=== PATIENT | male | born 1960 | race African-American/Black ===

== ENCOUNTER 2016-11-30 09:02 | Emergency (ER) | payer MEDICARE ==
--- NOTE | ~2016-11-30 | CT4 ---
[facility] A Service of [facility] & [facility] RADIOLOGY TEXT RESULTS PATIENT: MERCY PARADA LOCATION: [facility] : 60 UNIT #: [id number] AGE: [address]: Jennifer Spaulding APRN SEX: M ORDER DR: [id number] [facility] [address] [place], [place] [address] [id number] E MR#: [id number] Acc #: [id number] NAME: MERCY PARADA : 1960 SEX: M STUDY DATE/TIME: 11/30/2016 10:06 UNIT: [facility] ROOM: STUDY DESCRIPTION: CT Abd and Pelv Wo Cont Attending Physician: Jennifer Spaulding A.P.R.N. Ordering Physician: Ed Doctor [id number] [facility] Primary Care Physician: Primary Care Physician No MEDICAL IMAGING REPORT This report is preliminary unless electronic signature is present EXAM CT abdomen and pelvis without contrast 11/30/2016 1006 hours HISTORY 56-year-old man with complaint of right flank pain for 3 days. History of hyperlipidemia. COMPARISON Ultrasound right upper quadrant 01/27/[address] aorta 01/25/2014. TECHNIQUE Helical noncontrasted images were obtained from the lung bases through the pubic symphysis without oral or intravenous contrast. Sagittal and coronal reconstructions were performed. Total exam DLP 669 mGy-cm. This CT examination was performed with one or more of the following radiation dose reduction techniques: automatic exposure control, adjustment of mA and/or kV according to patient size, and iterative reconstruction. FINDINGS Images through the lung bases are clear. There is no effusion. The distal esophagus is normal. Images through the abdomen demonstrate a normal noncontrasted appearance of the liver, spleen, pancreas, gallbladder and bile ducts. The adrenal glands are normal. The kidneys demonstrate no mass, stone or dilatation. There is no ureterectasis or ureteral calculus. The abdominal aorta is normal in caliber with mild atherosclerotic calcification present. The stomach is contracted and unopacified but appears normal. There is no small bowel distension or small bowel wall thickening. The appendix is well seen and normal. The terminal ileum and cecum are normal. There is no colonic wall thickening. There are scattered diverticula in the descending colon with multiple diverticula in the sigmoid colon. There is STS. [facility] A Service of [facility] & [facility] RADIOLOGY TEXT RESULTS PATIENT: MERCY PARADA LOCATION: [facility] : 60 UNIT #: [id number] AGE: [address]: Jennifer Spaulding APRN SEX: M ORDER DR: no bowel wall thickening or inflammation. The bladder, seminal vesicles and prostate are normal. There is multilevel degenerative disc disease with osteophytes and facet arthropathy in the lower lumbar levels. No fracture or malalignment. IMPRESSION 1. No renal or ureteral calculi. 2. No evidence of gallstones or bile duct dilatation. The pancreas is normal. 3. The terminal ileum, cecum and appendix are normal. 4. Uncomplicated colonic diverticula in the descending colon and sigmoid colon. 5. There is degenerative disc disease and facet degenerative change in the lower lumbar spine. No fracture seen. Dictated by... Jenny Zuñiga M.D. THIS IS AN ELECTRONICALLY VERIFIED REPORT Jenny Zuñiga M.D. at 11/30/2016 2:30 PM JOVANNY/marcy TD: 11/30/2016 12:08 JOB #: [id number] MEDICAL IMAGING REPORT Page 1 of 1 COPY
[2016-11-30 08:31] LABS: BASOPHIL% 0.9 % (0-2.5); EOSINOPHIL# 0.1 X10e3 (0-0.7); HEMATOCRIT 49.1 % (38.0-50.0); LYMPHOCYTE# 1.9 X10e3 (1.0-3.5); LYMPHOCYTE% 51.1 % (17.0-45.0); MEAN CELL VOLUME 85.4 FL (83-96); MEAN CORPUSCULAR HEMOGLOBIN 27.9 PG (28-34); MEAN CORPUSCULAR HGB CONC 32.7 g/dL (30-36); MONOCYTE# 0.4 X10e3 (0-1.0); MONOCYTE% 11.6 % (3.0-12.0); NEUTROPHIL# 1.3 X10e3 (1.5-7.1); NEUTROPHIL% 33.4 % (40-75); PLATELET COUNT 184 X10e3 (140-420); RED BLOOD COUNT 5.75 X10e (3.90-5.60); RED CELL DISTRIBUTION WIDTH 14.8 % (11.0-15.5); WHITE BLOOD COUNT 3.8 X10e3 (4.0-10.5)
[2016-11-30 08:51] LABS: DIFF IND YES
[2016-11-30 08:52] LABS: BILIRUBIN,TOTAL 0.4 mg/dL (0.2-2.0); BUN/CREATININE RATIO 12.85; CALCIUM SERUM 8.7 mg/dL (8.4-10.2); CREATININE SERUM 1.4 mg/dL (0.6-1.4); GLOM FILT RATE Estimated 55.8 mL/min (>60); POTASSIUM 3.8 mmol/L (3.5-5.1); PROTEIN TOTAL SERUM 7.2 g/dL (6.0-8.3)
[2016-11-30 08:54] LABS: PLATELET ESTIMATE NORMAL (NORMAL)
[2016-11-30 08:55] LABS: ANISOCYTOSIS SL
[2016-11-30 09:29] LABS: URINE SOURCE CLEAN CATCH
[2016-11-30 09:35] LABS: URINE APPEARANCE CLEAR; URINE BILIRUBIN NEG (NEG); URINE BLOOD NEG (NEG); URINE COLOR YELLOW; URINE GLUCOSE NEG (NEG); URINE KETONE NEG (NEG); URINE LEUKOCYTE ESTERASE NEG (NEG); URINE NITRATE NEG (NEG); URINE PROTEIN NEG (NEG); URINE UROBILINOGEN 0.2 MG/DL (NEG)
[2016-11-30 09:40] LABS: CULTURE INDICATED? NO
[2016-12-21] MEDS ORDERED: HYDROCODON-ACE1 EAC5 PO (15:39)
[2016-12-21] MEDS ORDERED: TOPIRAMATE25 MG PO (15:39)
[2016-12-21] MEDS ORDERED: OMEGA 3 1,0001 EACH PO (15:40)
[2016-12-21] MEDS ORDERED: LIPITOR20 MG PO (15:40)
[2016-12-21] MEDS ORDERED: MULTI VITAMIN1 EACH PO (15:40)
== END 2016-11-30 11:10 | disposition home or self-care (01) ==
LOC: CED 09:02
PROVIDERS: Nurse Practitioner
DX: R10.9 Unspecified abdominal pain (principal); E78.5 Hyperlipidemia, unspecified; F17.200 Nicotine dependence, unspecified, uncomplicated; Z79.899 Other long term (current) drug therapy
CPT/HCPCS: 36415; 74176; 80053; 81003; 83690; 85025; 96374; 99284; J1885

== ENCOUNTER → 2016-12-07 | Outpatient (CLI) | payer MEDICARE ==
[~2016-12-07] MED LIST: HYDROCODON-ACE1 EAC5 PO; LIPITOR20 MG PO; MULTI VITAMIN1 EACH PO; OMEGA 3 1,0001 EACH PO; TOPIRAMATE25 MG PO
--- NOTE | ~2016-12-07 | US5 ---
[facility] A Service of [facility] & [facility] RADIOLOGY TEXT RESULTS PATIENT: MERCY PARADA LOCATION: [facility] : 60 UNIT #: [id number] AGE: [address]: RENETTA SAWANT MD SEX: M ORDER DR: [id number] [facility] [address] [place], [place] [address] [id number] O MR#: [id number] Acc #: [id number] NAME: MERCY PARADA : 1960 SEX: M STUDY DATE/TIME: 12/07/2016 9:24 UNIT: [facility] ROOM: STUDY DESCRIPTION: US Abdominal Complete Attending Physician: Renetta Sawant M.D. Referring Physician: Renetta Sawant M.D. Ordering Physician: Renetta Sawant M.D. Primary Care Physician: Renetta Sawant M.D. MEDICAL IMAGING REPORT This report is preliminary unless electronic signature is present EXAM Abdominal ultrasound complete, 12/07/2016 INDICATION 56-year-old male with abdominal pain, right upper quadrant and right-sided flank pain. Symptoms for a week. History of lung cancer in the patient's father and uncle. Post prandial distension and bloating. TECHNIQUE Sonographic imaging of the abdomen was performed. COMPARISON Correlation is made with CT 11/30/2016. FINDINGS Visualized aspects of the pancreas are unremarkable. Portions were obscured by bowel gas and not seen or evaluated. Liver measures about 13.8 cm long axis. In the dome of the right hepatic lobe there is a nonspecific echogenic solid mass measuring about 1.8 cm maximum diameter. Absent any history of malignancy or underlying hepatic dysfunction this is likely to be benign but technically indeterminate. Absent prior outside studies documenting 2 years of stability, further evaluation with cross-sectional imaging utilizing a liver protocol with without contrast with either MRI or CT is recommend for further assessment. Remainder of the liver is unremarkable. It measures 13.8 cm long axis. The gallbladder is sonographically unremarkable. The kidneys are nonobstructed. The right kidney measures 9.6 cm long axis and the left measures 10.4 cm. No shadowing stone on either side. Segmentally visualized aorta and IVC are unremarkable. Extrahepatic common bile duct measures 2.0 mm. The spleen is unremarkable. It measures 8.2 cm long axis. [facility] A Service of [facility] & [facility] RADIOLOGY TEXT RESULTS PATIENT: MERCY PARADA LOCATION: [facility] : 60 UNIT #: [id number] AGE: [address]: RENETTA SAWANT MD SEX: M ORDER DR: IMPRESSION 1. There is an indeterminate less than 2.0 cm solid echogenic mass in the dome of the right hepatic lobe. See discussion above. Absent prior outside studies documenting 2 years of stability, it should be further evaluated with multiphase protocol with and without contrast MRI or CT. 2. There is no evidence of cholelithiasis or ductal dilatation. 3. Limited evaluation of the pancreas. Dictated by... Aleksey Siddiqui M.D. THIS IS AN ELECTRONICALLY VERIFIED REPORT Aleksey Siddiqui M.D. at 12/08/2016 5:34 PM Rudolph TD: 12/07/2016 11:27 JOB #: [id number] MEDICAL IMAGING REPORT Page 1 of 1 COPY
== END | disposition home or self-care (01) ==
LOC: CWCC 09:01
DX: R10.9 Unspecified abdominal pain (principal); R16.0 Hepatomegaly, not elsewhere classified
CPT/HCPCS: 76700

== ENCOUNTER → 2016-12-21 | Outpatient (CLI) | payer MEDICARE ==
--- NOTE | ~2016-12-21 | MR2 ---
[facility] A Service of [facility] & [facility] RADIOLOGY TEXT RESULTS PATIENT: MERCY PARADA LOCATION: [facility] : 60 UNIT #: [id number] AGE: [address]: RENETTA SAWANT MD SEX: M ORDER DR: [id number] [facility] [address] [place], [place] [address] [id number] O MR#: [id number] Acc #: [id number] NAME: MERCY PARADA : 1960 SEX: M STUDY DATE/TIME: 12/21/2016 8:38 UNIT: [facility] ROOM: STUDY DESCRIPTION: MR Abdomen WWo Cont Attending Physician: Renetta Sawant M.D. Referring Physician: Renetta Sawant M.D. Ordering Physician: Renetta Sawant M.D. Primary Care Physician: Renetta Sawant M.D. MRI CENTER REPORT This report is preliminary unless electronic signature is present. EXAM MRI abdomen with and without contrast INDICATION Indeterminate liver lesion on recent ultrasound. PROCEDURE Multiplanar, multisequence MR imaging of the abdomen prior to and following 19 mL of MultiHance. COMPARISON Unenhanced CT from 11/30/2016 and a abdominal ultrasound from 12/10/2016. FINDINGS ABDOMEN WITHOUT CONTRAST: Liver has normal size and morphology. No significant hepatic fat or iron deposition. The spleen, adrenal glands, gallbladder, biliary system have normal signal characteristics. There is mild pelvocaliectasis on the right. Small right renal cysts. The main pancreatic duct is noted to course anterior to the distal common duct. Otherwise, pancreas has normal signal. There are a few left-sided colonic diverticula. ABDOMEN WITH CONTRAST: There is a 2.0 cm lesion at the dome of the liver in segment 7. It shows features most in keeping with a benign hemangioma. No other liver lesion is seen and there is no abnormal enhancement elsewhere in the abdomen. The right kidney does show some cortical thinning and mild volume loss compared with the left kidney. IMPRESSION 1. 2.0 cm lesion in segment 7 of the liver shows features most in keeping with a benign hemangioma. No other liver lesion. 2. Right kidney shows pelvocaliectasis with mild volume loss and cortical thinning compared with the left suggesting mild chronic STS. [facility] A Service of [facility] & [facility] RADIOLOGY TEXT RESULTS PATIENT: MERCY PARADA LOCATION: [facility] : 60 UNIT #: [id number] AGE: [address]: RENETTA SAWANT MD SEX: M ORDER DR: obstructive change. This could represent a UPJ type narrowing. 3. The main pancreatic duct courses anterior to the distal common duct which can be seen in the setting of pancreatic divisum. Pancreas otherwise shows normal signal. Dictated by... J Luis Ray M.D. THIS IS AN ELECTRONICALLY VERIFIED REPORT J Luis Ray M.D. at 12/24/2016 7:04 AM Tatiana TD: 12/21/2016 11:31 JOB #: [id number] MRI CENTER REPORT Page 1 of 1 COPY
== END | disposition home or self-care (01) ==
LOC: CMRI 07:28
DX: R16.0 Hepatomegaly, not elsewhere classified (principal); R93.8 Abnormal findings on diagnostic imaging of other specified body structures; K76.9 Liver disease, unspecified; N28.89 Other specified disorders of kidney and ureter
CPT/HCPCS: 74183; A9577

== ENCOUNTER → 2016-12-28 | Day surgery (SDC) | payer MEDICARE ==
--- NOTE | ~2016-12-28 | OR ---
Unit #: [id number] #: [id number] Patient: MERCY PARADA [id number] [address] [place], [place] [address] [id number] O MR#: [id number] NAME: MERCY PARADA ROOM: Date of Procedure: 12/28/2016 Admission Date: 12/28/2016 Surgeon: Camron Estrada M.D. : 1960 Attending Physician: Camron Estrada M.D. OPERATIVE REPORT PRIMARY CARE PHYSICIAN Job Ann M.D. PREOPERATIVE DIAGNOSIS Colorectal cancer screening in an average-risk patient. PROCEDURES PERFORMED Colonoscopy and polypectomy. POSTOPERATIVE DIAGNOSES 1. The patient had three sessile polyps, two of these were located in the descending colon and one in the transverse colon. The transverse colon polyp was 1.2 cm in size. The descending colon polyps were 7 to 8 mm each. All the polyps were removed using snare polypectomy. They were retrieved and sent for histology. 2. Rest of the examination up to cecum and terminal ileum was normal. The quality of the prep was excellent. RECOMMENDATIONS Follow up the results of polyp histology and consider repeat colonoscopy in 5 years. SEDATION USED MAC. DESCRIPTION OF PROCEDURE Following detailed explanation of potential risks and complications of a colonoscopy, namely perforation, bleeding, and complication related to sedation, the patient was brought to GI lab and laid in the left lateral decubitus position. A digital rectal examination was performed, which was normal. Lubricated tip of the Olympus video colonoscope was inserted through the anus and advanced under direct vision. The scope was advanced past rectosigmoid into descending colon. No diverticula were seen in this area. The scope tip was then navigated all the way up to cecum with visualization of the ileocecal valve and the appendiceal orifice. Preparation was excellent with good visualization and photodocumentation was obtained. Last few inches of the terminal ileum were also visualized after intubation of the ileocecal valve and appeared normal. Successive segments of the colonic mucosa were examined upon withdrawal. The patient was noted to have three sessile polyps. The largest of these was in the transverse colon, and two additional polyps were in the descending colon. All the polyps were removed using snare cautery polypectomy. They were Unit #: [id number] #: [id number] Patient: MERCY PARADA retrieved and sent for histology. No additional polyps were noted. The patient did not have any diverticulosis nor any hemorrhoids. He tolerated the procedure without any postprocedure complications. Dictated by... Brittany Pinzon/hiro TD: 12/29/2016 02:15 JOB #: [id number] CC: Job Ann M.D. OPERATIVE REPORT Page 1 of 1 X Camron Estrada MD X PROCEDURE OPERATIVE NOTE
== END | disposition home or self-care (01) ==
LOC: COPS 08:27
DX: Z12.11 Encounter for screening for malignant neoplasm of colon (principal); D12.3 Benign neoplasm of transverse colon; D12.4 Benign neoplasm of descending colon; E78.5 Hyperlipidemia, unspecified; M54.5 Low back pain; F17.200 Nicotine dependence, unspecified, uncomplicated; Z79.899 Other long term (current) drug therapy; Z88.5 Allergy status to narcotic agent; Z88.6 Allergy status to analgesic agent; Z88.8 Allergy status to other drugs, medicaments and biological substances
CPT/HCPCS: 88305

== ENCOUNTER → 2017-01-25 | Outpatient (CLI) | payer MEDICARE ==
--- NOTE | ~2017-01-25 | NM26 ---
[facility] A Service of [facility] & [facility] RADIOLOGY TEXT RESULTS PATIENT: MERCY HIDALGO LOCATION: [facility] : 60 UNIT #: [id number] AGE: [address]: Toney Talamantes MD SEX: M ORDER DR: [id number] [facility] [address] [place], [place] [address] [id number] O MR#: [id number] Acc #: [id number] NAME: MERCY HIDALGO : 1960 SEX: M STUDY DATE/TIME: 01/25/2017 12:07 UNIT: [facility] ROOM: STUDY DESCRIPTION: MT Kidney Imaging Vasc Flow Attending Physician: Toney Talamantes M.D. Referring Physician: Toney Talamantes M.D. Ordering Physician: Toney Talamantes M.D. Primary Care Physician: Job Ann M.D. MEDICAL IMAGING REPORT This report is preliminary unless electronic signature is present EXAM Lasix renogram. HISTORY Mr. Hidalgo is a 56-year-old who underwent an MRI on 12/21/16 which showed some dilatation of the right renal pelvis and some mild thinning. 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 TECHNIQUE Patient was administered 4.53 mCi of Tc-99m mag3 and sequential images were obtained over the kidneys and bladder. The patient was administered 40 mg of Lasix at 4 and a half minutes. Time activity curves were generated. FINDINGS The patient does have relatively symmetric radiotracer uptake seen within the kidneys, although excretion into the renal pelvis is initially seen on the left. Excretion into the right renal pelvis is mildly delayed when compared to the contralateral side. There is some progressive filling of the right renal pelvis but it responds appropriately to the administration of Lasix with prompt clearing of the collecting system noted. The patient's time to peak is 2 minutes on the left and 3 minutes on the right. Time to half peak is 7 minutes on the left and 8 minutes on the right. Percentage uptake is 51.6 on the left and 48.4% on the right. The patient's ERPF on the right is 124.4 and on the left is 132.4 for a total of 256.8. IMPRESSION No convincing evidence of obstruction on either side. The patient does appear to have a mildly dilated collecting system on the right but does show clearance of the collecting system with the administration of Lasix. [facility] A Service of [facility] RADIOLOGY TEXT RESULTS PATIENT: MERCY HIDALGO LOCATION: [facility] #: [id number] : 60 UNIT #: [id number] AGE: [address]: Toney Talamantes MD SEX: M ORDER DR: Dictated by... Mera Heard M.D. THIS IS AN ELECTRONICALLY VERIFIED REPORT Mera Heard M.D. at 02/01/2017 3:28 PM AFF/bd TD: 01/29/2017 11:41 JOB #: [id number] MEDICAL IMAGING REPORT Page 1 of 1 COPY
== END | disposition home or self-care (01) ==
LOC: CNUC 10:20
DX: N13.30 Unspecified hydronephrosis (principal)
CPT/HCPCS: 78701; A9562; J1940